=== PATIENT | female | born 1965 | race Caucasian/White ===

== ENCOUNTER 2016-06-18 21:17 | Emergency (ER) | payer OTHER ==
[~2016-06-18 21:17] MED LIST: CYCL5TAB PO; HYDR-971 PO
[2016-06-18 21:18] VITALS: BP 136/82
--- NOTE | 2016-06-18 21:50 | PHYS DOC ---
Past Medical History Past Medical History: No Pertinent History Past Surgical History: Appendectomy, Tonsillectomy Additional Past Surgical Histo: uterine ablation Alcohol Use: Rarely Drug Use: None Adult General Chief Complaint Chief Complaint: HEADACHE HPI HPI Patient is a 50 year old female presents emergency room with complaint of headache and stiff neck began approximately 1500 today. She denies any injury to her neck. 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 She has had multiple contacts with persons with influenza. She is not taking care of any patients with meningitis or encephalitis. She denies antibiotic use, hospitalization or foreign travel past 90 days. Patient states that she took acetaminophen and ibuprofen approximately 1600. Review of Systems Review of Systems Constitutional: Denies fever or chills [] Eyes: Denies change in visual acuity, redness, or eye pain [] HENT: Denies nasal congestion or sore throat [] Respiratory: Denies cough or shortness of breath [] Cardiovascular: No additional information not addressed in HPI [] GI: Denies abdominal pain, nausea, vomiting, bloody stools or diarrhea [] : Denies dysuria or hematuria [] Musculoskeletal: Denies back pain or joint pain [] Integument: Denies rash or skin lesions [] Neurologic: Denies headache, focal weakness or sensory changes [] Endocrine: Denies polyuria or polydipsia [] Allergies Allergies Allergies Coded Allergies Type Severity Reaction Last Updated Verified No Known Drug Allergies 05/12/14 No Physical Exam Physical Exam Constitutional: Well developed, well nourished, mild distress, non-toxic appearance. Patient's temperature is 100. HENT: Normocephalic, atraumatic, bilateral external ears normal, oropharynx moist, no oral exudates, nose normal. Eyes: PERRLA, EOMI, conjunctiva normal, no discharge. [] Neck: Normal range of motion, no tenderness, supple, no stridor. Negative Brudzinski's. There is bilateral anterior and posterior cervical lymphadenopathy. Cardiovascular:Heart rate regular rhythm, no murmur [] Lungs & Thorax: There is no respiratory distress respiratory fatigue. There is no posturing or sensory muscle use. Lungs are clear to auscultation bilaterally. Abdomen: Bowel sounds normal, soft, no tenderness, no masses, no pulsatile masses. [] Skin: Warm, dry, no erythema, no rash. [] Back: No tenderness, no CVA tenderness. [] Extremities: No tenderness, no cyanosis, no clubbing, ROM intact, no edema. [] Neurologic: Alert and oriented X 3, normal motor function, normal sensory function, no focal deficits noted. Psychologic: Affect normal, judgement normal, mood normal. [] Current Patient Data Vital Signs Vital Signs Date Time Temp Pulse Resp B/P Pulse Ox O2 Delivery O2 Flow Rate FiO2 06/18/16 21:18 100.0 82 18 100 Room Air 100.0 Lab Values Laboratory Tests Test 06/18/16 21:45 Urine Collection Type Unknown Urine Color Yellow Urine Clarity Clear Urine pH 6.5 Urine Specific [place] 1.010 Urine Protein Negativemg/dL (NEG-TRACE) Urine Glucose (UA) Negativemg/dL (NEG) Urine Ketones (Stick) Negativemg/dL (NEG) Urine Blood Small (NEG) Urine Nitrite Negative (NEG) Urine Bilirubin Negative (NEG) Urine Urobilinogen Dipstick 0.2mg/dL (0.2 mg/dL) Urine Leukocyte Esterase Negative (NEG) Urine RBC Occ/HPF (0-2) Urine WBC 1-4/HPF (0-4) Urine Squamous Epithelial Cells Few/LPF Urine Bacteria 0/HPF (0-FEW) Influenza Type A Antigen Negative (NEGATIVE) Influenza Type B Antigen Negative (NEGATIVE) EKG EKG [] Radiology/Procedures Radiology/Procedures [] Course & Med Decision Making Course & Med Decision Making Pertinent Labs and Imaging studies reviewed. (See chart for details) [] Dragon Disclaimer Dragon Disclaimer This electronic medical record was generated, in whole or in part, using a voice recognition dictation system. Departure Departure Impression: Primary Impression: Viral syndrome Additional Impression: Myalgia Disposition: 01 HOME, SELF-CARE Condition: GOOD Referrals: LINDY RANGEL (PCP) Patient Instructions: Myalgia, Adult, Viral Syndrome Additional Instructions: 1. Flu test is negative. UA does not show any evidence of infection. 2. Review the discharge instructions provided for self-care and reasons to return the emergency department. 3. Rest at home for the next 2 days. 4. Follow-up with primary care doctor within 2-3 days for reexamination. Scripts Orphenadrine Citrate 100 Mg Tablet.er100 Mg PO BID muscle relaxer #14 Prov:YARON CHIANG 06/18/16 Hydrocodone/Apap 5-325 ([place] 5-325 Tablet)1 Each Tablet1 Tab PO PRN Q6HRS PRN PAIN #10 TAB Prov:YARON CHIANG 06/18/16 Problem Qualifiers YARON CHIANG Jun 18, 2016 21:50
[2016-06-18 22:07] LABS: BILIRUBIN,URINE NEGATIVE (NEG); GLUCOSE,URINE NEGATIVE (NEG); NITRITE,URINE NEGATIVE (NEG); PH,URINE 6.5; PROTEIN,URINE NEGATIVE (NEG-TRACE); UROBILINOGEN,URINE 0.2 mg/dL (0.2 mg/dL)
[2016-06-18 22:19] LABS: OBC FLU VALID
[2016-06-18 22:23] LABS: BACTERIA,URINE 0 /HPF (0-FEW); RBC,URINE OCC /HPF (0-2); SQUAMOUS EPITHELIAL CELL,UR FEW /LPF
[2016-06-18] MEDS ORDERED: HYDR-971 PO (22:31)
[2016-06-18] MEDS ORDERED: ORPH100T PO (22:31)
== END 2016-06-18 22:35 | disposition home or self-care (01) ==
LOC: ER 21:17
DX: B34.9 Viral infection, unspecified (principal); M79.1 Myalgia; R51 Headache; M43.6 Torticollis; R59.1 Generalized enlarged lymph nodes; Z90.89 Acquired absence of other organs
CPT/HCPCS: 81001; 87804; 99284

== ENCOUNTER → 2016-12-06 | Outpatient (CLI) | payer OTHER ==
[~2016-12-06] MED LIST changes: +IOHEXOL 350 MG/ML 100 ML VIAL. ONE; +ORPH100T PO
--- NOTE | 2016-12-06 13:13 | RAD ---
DATE: 12/06/2016 EXAM: DIGITAL SCREEN BILAT W/CAD HISTORY: Routine screening, breast implants COMPARISON: 07/24/2006 This study was interpreted with the benefit of Computerized Aided Detection (CAD). The breast parenchyma is heterogeneously dense, which could reduce sensitivity of mammography. Breast parenchyma level C. FINDINGS: Routine and implant exclusion views of both breasts were obtained. Bilateral breast implants are in place. The fibroglandular tissues are heterogeneously dense. No new or enlarging breast densities are seen. Several scattered benign type calcifications are noted. No suspicious microcalcifications have developed. IMPRESSION: There is no mammographic evidence of malignancy in either breast. BI-RADS CATEGORY: 2 BENIGN FINDING(S) RECOMMENDED FOLLOW-UP: 12M 12 MONTH FOLLOW-UP PQRS compliance statement: Patient information was entered into a reminder system with a target due date for the next mammogram. Mammography is a sensitive method for finding small breast cancers, but it does not detect them all and is not a substitute for careful clinical examination. A negative mammogram does not negate a clinically suspicious finding and should not result in delay in biopsying a clinically suspicious abnormality. "Our facility is accredited by the [employer] Mammography Program."
== END | disposition home or self-care (01) ==
LOC: MAMMO 12:42
PROVIDERS: ATTEND Internal Medicine
DX: Z12.31 Encounter for screening mammogram for malignant neoplasm of breast (principal)
CPT/HCPCS: G0202; 77067

== ENCOUNTER 2018-01-31 08:15 | Emergency (ER) | payer OTHER ==
[~2018-01-31] VITALS: Ht 162.6 cm; Wt 52.2 kg
[~2018-01-31 08:15] MED LIST changes: -IOHEXOL 350 MG/ML 100 ML VIAL. ONE
[2018-01-31 08:27] VITALS: BP 174/80
[2018-01-31] MEDS: KETOROLAC 60 MG/2 ML INJ. IM ONE (08:30)
[2018-01-31] MEDS ORDERED: ONDANSETRON ODT 4 MG TAB.RAPDIS. ONE (08:31)
[2018-01-31] MEDS: ONDANSETRON ODT 4 MG TAB.RAPDIS. PO ONE (08:36)
[2018-01-31] MEDS: methylPREDNISolone SOD SUCC PF 125 MG/2 ML VIAL. IM ONE (08:37)
--- NOTE | 2018-01-31 08:57 | RAD ---
Indication: Low back pain for one day of her climbing ladder. Pain radiating down left leg. TECHNIQUE: Multiple views of the lumbar spine COMPARISON: None FINDINGS: There are 5 lumbar type vertebral bodies. Lumbar spine demonstrates straightening. This could be due to muscle spasm or positioning. No compression deformities. No intervertebral disc space narrowing or productive changes. No significant facet arthropathy. SI joints within normal limits. IMPRESSION: No radiographic evidence of degenerative disc disease. Electronically signed by: Klaus Berkowitz DO (01/31/2018 8:54 AM) [id number]
[2018-01-31] MEDS ORDERED: CYCL10TA2 PO (09:11)
[2018-01-31] MEDS ORDERED: PRED20TA PO (09:11)
--- NOTE | 2018-01-31 09:11 | PHYS DOC ---
Past Medical History Past Medical History: No Pertinent History Past Surgical History: Appendectomy, Tonsillectomy Additional Past Surgical Histo: uterine ablation Alcohol Use: Rarely Drug Use: None Adult General Chief Complaint Chief Complaint: LOWER BACK PAIN OR INJURY [facility] HPI Patient is a 52 year old female presented to ER today for evaluation of low back pain that radiated to her legs and her buttock area. Patient complaint of pain GETTING worse when she sat on her buttock. Patient said said symptoms started last night, she had been climbing up and down the ladder to cleaning her gutters yesterday. She denies any injury. Patient denies any abdominal pain , no nausea vomiting. Patient denies any bowel or bladder incontinence. Review of Systems Review of Systems Constitutional: Denies fever or chills [] Eyes: Denies change in visual acuity, redness, or eye pain [] HENT: Denies nasal congestion or sore throat [] Respiratory: Denies cough or shortness of breath [] Cardiovascular: No additional information not addressed in HPI [] GI: Denies abdominal pain, nausea, vomiting, bloody stools or diarrhea [] : Denies dysuria or hematuria [] Musculoskeletal: POSITIVE FOR LOWER BACK PAIN THAT RADIATING TO BUTTOCK Integument: Denies rash or skin lesions [] Neurologic: Denies headache, focal weakness or sensory changes [] Endocrine: Denies polyuria or polydipsia [] All other systems were reviewed and found to be within normal limits, except as documented in this note. Current Medications Current Medications Current Medications Medications (Trade) Dose Ordered Sig/[facility] Start Time Stop Time Status Last Admin Dose Admin Ketorolac Tromethamine (Toradol Im) 60 mg 1X ONCE 01/31/18 08:30 01/31/18 08:33 DC 01/31/18 08:30 60 MG Methylprednisolone Sodium Succinate (SOLU-Medrol 125MG VIAL) 125 mg 1X ONCE 01/31/18 08:30 01/31/18 08:31 DC 01/31/18 08:37 125 MG Ondansetron HCl (Zofran Odt) 4 mg STK-MED ONCE 01/31/18 08:31 01/31/18 08:32 DC Allergies Allergies Allergies Coded Allergies Type Severity Reaction Last Updated Verified No Known Drug Allergies 05/12/14 No Physical Exam Physical Exam Constitutional: Well developed, well nourished, no acute distress, non-toxic appearance. [] HENT: Normocephalic, atraumatic, Eyes: PERRLA, EOMI, conjunctiva normal, no discharge. [] Neck: Normal range of motion, Cardiovascular: NOT DONE Lungs & Thorax: NOT DONE Abdomen: Bowel sounds normal, soft, no tenderness, no masses, no pulsatile masses. [] Skin: Warm, dry, no erythema, no rash. [] Back: No tenderness, no CVA tenderness. [] Extremities: No tenderness, no cyanosis, no clubbing, ROM intact, no edema. [] Neurologic: Alert and oriented X 3, normal motor function, normal sensory function, no focal deficits noted. [] Psychologic: Affect normal, judgement normal, mood normal. [] Current Patient Data Vital Signs Vital Signs Date Time Temp Pulse Resp B/P (MAP) Pulse Ox O2 Delivery O2 Flow Rate FiO2 01/31/18 08:27 98.2 90 18 174/80 (111) 99 Room Air 98.2 EKG EKG [] Radiology/Procedures Radiology/Procedures [][facility] [address] [place] [address] IMAGING REPORT Signed PATIENT: THAIS KELLY ACCOUNT: [id number] : 1965 LOCATION: ER AGE: 52 SEX: F EXAM STATUS: REG ER ORD. PHYSICIAN: BLANCA HERRON DO REASON: LOWER BACK PAIN SINCE YESTERDAY AFTER CLIMBING UP AND DOWN THE LADDER PROCEDURE: LUMBAR SPINE MIN 4V Indication: Low back pain for one day of her climbing ladder. Pain radiating down left leg. TECHNIQUE: Multiple views of the lumbar spine COMPARISON: None FINDINGS: There are 5 lumbar type vertebral bodies. Lumbar spine demonstrates straightening. This could be due to muscle spasm or positioning. No compression deformities. No intervertebral disc space narrowing or productive changes. No significant facet arthropathy. SI joints within normal limits. IMPRESSION: No radiographic evidence of degenerative disc disease. Electronically signed by: Klaus Berkowitz DO (01/31/2018 8:54 AM) [id number] DICTATED and SIGNED BY: KLAUS BERKOWITZ DO DATE: 01/31/18 0852 Course & Med Decision Making Course & Med Decision Making Pertinent Labs and Imaging studies reviewed. (See chart for details) [] Dragon Disclaimer Dragon Disclaimer This electronic medical record was generated, in whole or in part, using a voice recognition dictation system. Departure Departure Impression: Primary Impression: Acute sciatica Disposition: HOME, SELF-CARE Condition: STABLE Referrals: LINDY RANGEL DO (PCP) Patient Instructions: Sciatica with Rehab-[facility] Scripts Cyclobenzaprine Hcl (CYCLOBENZAPRINE HCL) 10 Mg Tablet 1 MG PO TID PRN for MUSCLE SPASMS for 7 Days, #20 TAB Prov: BLANCA HERRON DO 01/31/18 Prednisone (PREDNISONE) 20 Mg Tablet 1 TAB PO DAILY for 10 Days, #10 TAB Prov: BLANCA HERRON DO 01/31/18 BLANCA HERRON DO Jan 31, 2018 09:11
== END 2018-01-31 09:17 | disposition home or self-care (01) ==
LOC: ER 08:15
DX: M54.42 Lumbago with sciatica, left side (principal); M54.41 Lumbago with sciatica, right side; Z90.89 Acquired absence of other organs
CPT/HCPCS: 72110; 96372; 99284; J1885; J2930; Q0162

== ENCOUNTER → 2018-03-10 | Outpatient (CLI) | payer OTHER ==
[~2018-03-10] MED LIST changes: +CYCL10TA2 PO; +HYDR-3164 PO; -HYDR-971 PO; +PRED20TA PO
--- NOTE | 2018-03-10 09:10 | RAD ---
DATE: 03/10/2018 EXAM: MAMMO ADAM SCREENING BILATERAL HISTORY: Screening mammograms, breast implants COMPARISON: 12/06/2016 This study was interpreted with the benefit of Computerized Aided Detection (CAD). Breast Density: HETERO The breast parenchyma is heterogenously dense, which could reduce sensitivity of mammography. Breast parenchyma level C. FINDINGS: 2-D routine and implant exclusion views of both breasts were obtained in CC and MLO projections. 3-D tomosynthesis imaging of both breasts was also performed in CC and MLO projections. The breast implants appear unchanged. The fibroglandular tissues are heterogeneous in a slightly nodular pattern. No new or enlarging breast densities are seen. Several benign type calcifications are noted. No suspicious microcalcifications have developed. IMPRESSION: Stable mammograms without evidence of malignancy. BI-RADS CATEGORY: 2 BENIGN FINDING(S) RECOMMENDED FOLLOW-UP: 12M 12 MONTH FOLLOW-UP PQRS compliance statement: Patient information was entered into a reminder system with a target due date for the next mammogram. Mammography is a sensitive method for finding small breast cancers, but it does not detect them all and is not a substitute for careful clinical examination. A negative mammogram does not negate a clinically suspicious finding and should not result in delay in biopsying a clinically suspicious abnormality. "Our facility is accredited by the [employer] Mammography Program."
== END | disposition home or self-care (01) ==
LOC: MAMMO 08:19
PROVIDERS: ATTEND Family Medicine
DX: Z12.31 Encounter for screening mammogram for malignant neoplasm of breast (principal)
CPT/HCPCS: 77063; 77067

== ENCOUNTER 2018-07-12 14:16 | Emergency (ER) | payer OTHER ==
[~2018-07-12] VITALS: Ht 162.6 cm; Wt 52.2 kg
[2018-07-12] MEDS ORDERED: IV NORMAL SALINE 1000ML BAG 1,000 ML IV ONE (14:30)
[2018-07-12] MEDS ORDERED: DEXAMETHASONE SOD PHOS 20 MG/5 ML VIAL. IV ONE (14:30)
[2018-07-12] MEDS ORDERED: METOCLOPRAMIDE HCL 10 MG/2 ML VIAL. IV ONE (14:30)
[2018-07-12 14:39] LABS: BASO # 0.1 x10^3/uL (0.0-0.2); BASO % 1 % (0-3); EOS # 0.3 x10^3/uL (0.0-0.7); EOS % 3 % (0-3); HEMATOCRIT 42.2 % (36.0-47.0); HEMOGLOBIN 14.3 g/dL (12.0-15.5); LYMPH # 2.1 x10^3/uL (1.0-4.8); LYMPH % 20 % (24-48); MEAN CORPUSCULAR HEMOGLOBIN 30 pg (25-35); MEAN CORPUSCULAR HGB CONC 34 g/dL (31-37); MEAN CORPUSCULAR VOLUME 88 fL (79-100); MONO # 0.7 x10^3/uL (0.0-1.1); MONO % 7 % (0-9); NEUT # 7.3 x10^3uL (1.8-7.7); NEUT % 69 % (31-73); PLATELET COUNT 415 x10^3/uL (140-400); RED BLOOD COUNT 4.81 x10^6/uL (3.50-5.40); RED CELL DISTRIBUTION WIDTH 13.2 % (11.5-14.5); WHITE BLOOD COUNT 10.6 x10^3/uL (4.0-11.0)
[2018-07-12 14:44] LABS: BILIRUBIN,URINE NEGATIVE (NEG); CLARITY,URINE CLEAR; COLOR,URINE YELLOW; NITRITE,URINE NEGATIVE (NEG); PROTEIN,URINE NEGATIVE (NEG-TRACE); UROBILINOGEN,URINE 0.2 mg/dL (0.2 mg/dL)
[2018-07-12] MEDS ORDERED: DEXAMETHASONE SOD PHOS 4 MG/ML VIAL IV ONE (14:45)
[2018-07-12 14:55] LABS: CREATININE 0.9 mg/dL (0.6-1.0); GFR 66.3; POTASSIUM 3.7 mmol/L (3.5-5.1)
[2018-07-12 14:59] LABS: BACTERIA,URINE FEW /HPF (0-FEW); SQUAMOUS EPITHELIAL CELL,UR MANY /LPF; WBC,URINE OCC /HPF (0-4)
[2018-07-12 15:01] LABS: ALBUMIN 3.9 g/dL (3.4-5.0); ALBUMIN/GLOBULIN RATIO 1.2 (1.0-1.7); TOTAL BILIRUBIN 0.3 mg/dL (0.2-1.0); TOTAL PROTEIN 7.1 g/dL (6.4-8.2)
--- NOTE | 2018-07-12 15:12 | PHYS DOC ---
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 She reports she took Tylenol, ibuprofen, and a sinus medication and since medication has had vision improvement in right side denying any deficits at this time. Patient denies any fever, eye pain, or nausea and vomiting. She reports history of headaches but does not get frequent ones. Patient denies any recent falls or injury. Patient is daily smoker. She reports occasional alcohol denying any intake last night. Currently on her menstrual cycle. Review of Systems Review of Systems Constitutional: Denies fever or chills [] Eyes: Denies redness, or eye pain. Reports had rt side peripheral deficits HENT: Denies nasal congestion or sore throat [] Respiratory: Denies cough or shortness of breath [] Cardiovascular: Denies CP/palpitations GI: Denies abdominal pain, nausea, vomiting, bloody stools or diarrhea [] : Denies dysuria or hematuria [] Musculoskeletal: Denies back pain or joint pain. Integument: Denies rash or skin lesions [] Neurologic: Denies focal weakness or sensory changes. Denies dizziness. Reports frontal headache Endocrine: Denies polyuria or polydipsia [] All other systems were reviewed and found to be within normal limits, except as documented in this note. Current Medications Current Medications Current Medications Medications (Trade) Dose Ordered Sig/An Start Time Stop Time Status Last Admin Dose Admin Dexamethasone Sodium Phosphate (Decadron) 10 mg 1X ONCE 07/12/18 14:45 07/12/18 14:46 DC 07/12/18 15:01 10 MG Metoclopramide HCl (Reglan Vial) 10 mg 1X ONCE 07/12/18 14:30 07/12/18 14:33 DC 07/12/18 14:43 10 MG Sodium Chloride 1,000 ml @ 1,000 mls/hr 1X ONCE 07/12/18 14:30 07/12/18 15:29 DC 07/12/18 14:42 1,000 MLS/HR Allergies Allergies Allergies Coded Allergies Type Severity Reaction Last Updated Verified No Known Drug Allergies 2/25/15 No Physical Exam Physical Exam Constitutional: Well developed, well nourished, no acute distress, non-toxic appearance. Clear speech HENT: Normocephalic, atraumatic, bilateral ears normal, oropharynx moist- no pharyngeal swelling/erythema, no oral exudates, nose normal. [] Eyes: 3mm PERRLA, EOMI- no pain with eye movements, no nystagmus, conjunctiva normal, no discharge. Denying any vision changes or peripheral vision deficits Neck: Normal range of motion, no tenderness/nuchal rigidity, supple, no stridor/gross adenopathy Cardiovascular: Heart rate regular rhythm, no murmur [] Lungs & Thorax: Bilateral breath sounds clear to auscultation- resp. equal/nonlabored Abdomen: Bowel sounds normal, soft, no tenderness Skin: Warm, dry, no erythema, no rash. [] Back: No tenderness, no CVA tenderness. [] Extremities: No tenderness, no cyanosis, no clubbing, ROM intact, no edema. [] Neurologic: Alert and oriented X 3, normal motor function, normal sensory function, no focal deficits noted. Vice President Process equal- no facial droop. NIHSS 0 Psychologic: Affect normal, judgement normal, mood normal. [] Current Patient Data Vital Signs Vital Signs Date Time Temp Pulse Resp B/P (MAP) Pulse Ox O2 Delivery O2 Flow Rate FiO2 07/12/18 15:55 88 16 99 07/12/18 14:16 98.3 126/65 (85) Room Air 98.3 Lab Values Laboratory Tests Test 07/12/18 14:30 07/12/18 14:33 White Blood Count 10.6 x10^3/uL (4.0-11.0) Red Blood Count 4.81 x10^6/uL (3.50-5.40) Hemoglobin 14.3 g/dL (12.0-15.5) Hematocrit 42.2 % (36.0-47.0) Mean Corpuscular Volume 88 fL (79-100) Mean Corpuscular Hemoglobin 30 pg (25-35) Mean Corpuscular Hemoglobin Concent 34 g/dL (31-37) Red Cell Distribution Width 13.2 % (11.5-14.5) Platelet Count 415 x10^3/uL (140-400) H Neutrophils (%) (Auto) 69 % (31-73) Lymphocytes (%) (Auto) 20 % (24-48) L Monocytes (%) (Auto) 7 % (0-9) Eosinophils (%) (Auto) 3 % (0-3) Basophils (%) (Auto) 1 % (0-3) Neutrophils # (Auto) 7.3 x10^3uL (1.8-7.7) Lymphocytes # (Auto) 2.1 x10^3/uL (1.0-4.8) Monocytes # (Auto) 0.7 x10^3/uL (0.0-1.1) Eosinophils # (Auto) 0.3 x10^3/uL (0.0-0.7) Basophils # (Auto) 0.1 x10^3/uL (0.0-0.2) Sodium Level 137 mmol/L (136-145) Potassium Level 3.7 mmol/L (3.5-5.1) Chloride Level 100 mmol/L (98-107) Carbon Dioxide Level 27 mmol/L (21-32) Anion Gap 10 (6-14) Blood Urea Nitrogen 12 mg/dL (7-20) Creatinine 0.9 mg/dL (0.6-1.0) Estimated GFR (Cockcroft-Gault) 66.3 BUN/Creatinine Ratio 13 (6-20) Glucose Level 169 mg/dL (70-99) H Calcium Level 9.0 mg/dL (8.5-10.1) Total Bilirubin 0.3 mg/dL (0.2-1.0) Aspartate Amino Transferase (AST) 17 U/L (15-37) Alanine Aminotransferase (ALT) 20 U/L (14-59) Alkaline Phosphatase 58 U/L (46-116) Total Protein 7.1 g/dL (6.4-8.2) Albumin 3.9 g/dL (3.4-5.0) Albumin/Globulin Ratio 1.2 (1.0-1.7) Urine Collection Type Unknown Urine Color Yellow Urine Clarity Clear Urine pH 6.0 Urine Specific [place] 1.015 Urine Protein Negative mg/dL (NEG-TRACE) Urine Glucose (UA) Negative mg/dL (NEG) Urine Ketones (Stick) Negative mg/dL (NEG) Urine Blood Moderate (NEG) Urine Nitrite Negative (NEG) Urine Bilirubin Negative (NEG) Urine Urobilinogen Dipstick 0.2 mg/dL (0.2 mg/dL) Urine Leukocyte Esterase Negative (NEG) Urine RBC 6-10 /HPF (0-2) Urine WBC Occ /HPF (0-4) Urine Squamous Epithelial Cells Many /LPF Urine Bacteria Few /HPF (0-FEW) Urine Mucus Marked /LPF Laboratory Tests 07/12/18 14:30 Laboratory Tests 07/12/18 14:30 EKG EKG [] Radiology/Procedures Radiology/Procedures PROCEDURE: CT HEAD WO CONTRAST CT brain without contrast. HISTORY: Severe headache, right side vision change CT scan of brain was done without contrast. There is no intracranial hemorrhage or subdural hematoma. Ventricles are normal in size. There is no mass or shift of the midline. There are no abnormal areas of increased or decreased attenuation. Sinuses are clear. IMPRESSION: 1. No intracranial hemorrhage or acute finding noted. Electronically signed by: Jamarcus Nowak MD (07/12/2018 4:01 PM) [id number] DICTATED and SIGNED BY: JAMARCUS NOWAK MD DATE: 07/12/18 1601 Course & Med Decision Making Course & Med Decision Making Pertinent Labs and Imaging studies reviewed. 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 Patient had labs and CT obtained. Patient had medications provided for headache. Labs were unremarkable and CT with no acute findings. Patient reported after treatments received her headache significantly improved and she is feeling comfortable with home discharge. Patient reports she feels the IV fluids probably is what she needed as she may have been dehydrated. Patient has had no focal neuro deficits. Patient states her vision changes subsided and she is having no dizziness, eye pain, or vision changes. Patient has steady gait at bedside unassisted. Vital signs have been stable. Patient is requesting discharge as her symptoms have improved. Patient states she will follow-up with her primary care physician if symptoms reoccur or with concerns. Smoking cessation was discussed. Patient encouraged to increase fluid intake and eat well-balanced meals. Education provided on signs and symptoms to return to ER for and discharge instructions were discussed. Dragon Disclaimer Dragon Disclaimer This electronic medical record was generated, in whole or in part, using a voice recognition dictation system. Departure Departure Impression: Primary Impression: Headache Disposition: 01 HOME, SELF-CARE Condition: STABLE Referrals: ELLA HART MD (PCP) Patient Instructions: General Headache Without Cause Additional Instructions: Tylenol and/or Ibuprofen as needed for pain. Drink plenty of fluids. Avoid smoking. If symptoms persist follow-up with your primary care physician for reevaluation. Scripts Ondansetron (ONDANSETRON ODT) 4 Mg Tab.rapdis 1 TAB PO PRN Q6-8HRS PRN for NAUSEA, #10 TAB 0 Refills Prov: SHIRLEY TAY APRN 07/12/18 SHIRLEY TAY APRN Jul 12, 2018 15:11
[2018-07-12 15:55] VITALS: BP 155/66
--- NOTE | 2018-07-12 16:03 | RAD ---
CT brain without contrast. HISTORY: Severe headache, right side vision change CT scan of brain was done without contrast. There is no intracranial hemorrhage or subdural hematoma. Ventricles are normal in size. There is no mass or shift of the midline. There are no abnormal areas of increased or decreased attenuation. Sinuses are clear. IMPRESSION: 1. No intracranial hemorrhage or acute finding noted. Electronically signed by: Jamarcus Kaur MD (07/12/2018 4:01 PM) [id number]
[2018-07-12] MEDS ORDERED: ONDA4TAB12 PO (16:21)
== END 2018-07-12 16:20 | disposition home or self-care (01) ==
LOC: ER 14:16
DX: R51 Headache (principal); H54.7 Unspecified visual loss; F17.200 Nicotine dependence, unspecified, uncomplicated
CPT/HCPCS: 36415; 70450; 80053; 81001; 85025; 96374; 96375; 99285; J1100; J2765; J7030

== ENCOUNTER → 2018-10-22 | Outpatient (CLI) | payer OTHER ==
[~2018-10-22] MED LIST changes: +ONDA4TAB12 PO
[2018-10-22 13:31] LABS: HEMATOCRIT 43.5 % (36.0-47.0); HEMOGLOBIN 14.8 g/dL (12.0-15.5); RED BLOOD COUNT 4.93 x10^6/uL (3.50-5.40); RED CELL DISTRIBUTION WIDTH 12.8 % (11.5-14.5); WHITE BLOOD COUNT 11.4 x10^3/uL (4.0-11.0)
[2018-10-22 13:46] LABS: CALCIUM 9.1 mg/dL (8.5-10.1); CREATININE 0.7 mg/dL (0.6-1.0); GFR 88.2; POTASSIUM 3.5 mmol/L (3.5-5.1)
[2018-10-22 13:47] LABS: CHOLESTEROL/HDL RATIO 3.4
[2018-10-24 22:08] LABS: THYROXINE 7.4 ug/dL (4.5-12.0)
== END | disposition home or self-care (01) ==
LOC: LAB 11:21
PROVIDERS: ATTEND Family Medicine
DX: Z00.00 Encounter for general adult medical examination without abnormal findings (principal)
CPT/HCPCS: 36415; 80048; 80061; 84436; 84443; 84480; 85027

== ENCOUNTER → 2018-12-10 | Outpatient (CLI) | payer OTHER ==
--- NOTE | 2018-12-10 14:44 | RAD ---
EXAM: Renal sonogram. HISTORY: Hematuria. TECHNIQUE: Sonographic imaging of the kidneys and bladder was performed. COMPARISON: None. FINDINGS: The right kidney measures 10.4 cm [id number]. The left kidney measures 10.2 cm [id number]. There is a 2.1 cm complex right renal parapelvic cyst. There is no hydronephrosis. The ureteral jets are both seen. There is a 1.7 cm hypoechoic lesion along the left posterior bladder wall, possibly due to an adjacent subserosal uterine fibroid. The aorta is normal in caliber. The inferior vena cava is patent. IMPRESSION: 1. 2.1 cm complicated right renal cyst, not appreciably changed compared to the remote CT dated 07/28/2011 when allowing for differences in imaging modality. 2. 1.7 cm nodular lesion along the left posterior bladder wall, possibly a subserosal fibroid associated with the uterine fundus. There is suggestion of this lesion on the prior CT. The imaging appearance does not favor a bladder neoplasm. Electronically signed by: Destiny Oslulivan MD (12/10/2018 2:41 PM) [place] [id number]
== END | disposition home or self-care (01) ==
LOC: US 09:42
PROVIDERS: ATTEND Urology
DX: N28.1 Cyst of kidney, acquired (principal); N32.89 Other specified disorders of bladder
CPT/HCPCS: 76770

== ENCOUNTER → 2019-10-13 | Outpatient (CLI) | payer OTHER ==
[2019-10-13 08:57] LABS: ALBUMIN/GLOBULIN RATIO 1.2 (1.0-1.7); CALCIUM 8.8 mg/dL (8.5-10.1); CHOLESTEROL/HDL RATIO 3.7; GFR 58.2; POTASSIUM 3.6 mmol/L (3.5-5.1); TOTAL BILIRUBIN 0.5 mg/dL (0.2-1.0); TOTAL PROTEIN 7.3 g/dL (6.4-8.2)
--- NOTE | 2019-10-13 15:31 | RAD ---
DATE: 10/13/2019 8:25 AM EXAM: MAMMO ADAM SCREENING BILATERAL HISTORY: Screening COMPARISON: 03/10/2018 Bilateral CC and MLO views of the breasts in addition to implant displaced CC and MLO views were performed. Bilateral breast tomosynthesis was performed in CC and MLO projections. This study was interpreted with the benefit of Computerized Aided Detection (CAD). FINDINGS: Breast Density: HETERO The breast parenchyma Is heterogeneously dense, which could reduce sensitivity of mammography. Breast parenchyma level C Nodular parenchymal pattern compatible with benign cystic change. Bilateral subpectoral saline implants are present. No suspicious masses, microcalcifications or architectural distortion is present to suggest malignancy in either breast. The visualized axillae are unremarkable. IMPRESSION: No mammographic evidence of malignancy. BI-RADS CATEGORY: 2 BENIGN FINDING(S) RECOMMENDED FOLLOW-UP: 12M 12 MONTH FOLLOW-UP Annual screening mammography is recommended, unless clinically indicated sooner based on symptoms or change in physical exam. PQRS compliance statement: Patient information was entered into a reminder system with a target due date 10/13/2020 for the next mammogram. Mammography is a sensitive method for finding small breast cancers, but it does not detect them all and is not a substitute for careful clinical examination. A negative mammogram does not negate a clinically suspicious finding and should not result in delay in biopsying a clinically suspicious abnormality. "Our facility is accredited by the [employer] Mammography [employer]."
== END | disposition home or self-care (01) ==
LOC: MAMMO 08:04
PROVIDERS: ATTEND Family Medicine
DX: Z12.31 Encounter for screening mammogram for malignant neoplasm of breast (principal); E78.5 Hyperlipidemia, unspecified
CPT/HCPCS: 36415; 77063; 77067; 80053; 80061

== ENCOUNTER → 2019-12-31 | Outpatient (CLI) | payer OTHER ==
[~2019-12-31] MED LIST changes: +GADOTERATE 7.5 MMOL/15ML VIAL. IVP ONE
--- NOTE | 2019-12-31 13:56 | RAD ---
MRI Brain with and without contrast History:Nonintractable episodic headache Technique: Multiplanar, multi sequential pre and postcontrast MR imaging was performed of the brain. Comparison: None Findings: There is mild motion. There is no evidence of recent infarct or cytotoxic edema. The ventricles, sulci, and cisterns are within normal limits in size and configuration. There is no significant midline shift, intraaxial mass effect, or focal abnormal extra-axial fluid collection. There is a tiny focus of FLAIR hyperintense signal of the left frontal white matter likely focus of nonspecific gliosis. There is no significant hemosiderin deposition the brain parenchyma. There is no nodular parenchymal or leptomeningeal enhancement. There is preservation of the major intracranial flow-voids at the skull base. The cerebellar tonsils are normal in location. There is no significant abnormality of the pineal gland or pituitary gland. There is negligible patchy bilateral air cell mucosal thickening. There is very minimal thickening of left mastoid air cells.There is preserved marrow signal of the clivus. Impression: 1. Other than a tiny focus of likely nonspecific gliosis of the left frontal white matter, there is no significant intracranial abnormality. Electronically signed by: Tk Wyman MD (12/31/2019 1:53 PM) [facility]
== END ==
LOC: MRI 12:27
PROVIDERS: ATTEND Family Medicine
DX: R51.9 Headache, unspecified (principal); J34.89 Other specified disorders of nose and nasal sinuses
CPT/HCPCS: 70553; A9575

== ENCOUNTER → 2019-12-31 | Outpatient (CLI) | payer OTHER ==
[~2019-12-31] MED LIST changes: -GADOTERATE 7.5 MMOL/15ML VIAL. IVP ONE
== END ==
LOC: LAB 14:04
PROVIDERS: ATTEND Internal Medicine Pulmonary Disease
DX: R51.9 Headache, unspecified (principal); Z20.828 Contact with and (suspected) exposure to other viral communicable diseases
CPT/HCPCS: U0003-CS

== ENCOUNTER → 2020-01-06 | Outpatient (CLI) | payer OTHER ==
[~2020-01-06] MED LIST changes: +ATOR10TA PO
== END ==
LOC: LAB 07:44
PROVIDERS: ATTEND Internal Medicine Gastroenterology
DX: Z01.812 Encounter for preprocedural laboratory examination (principal); Z20.828 Contact with and (suspected) exposure to other viral communicable diseases
CPT/HCPCS: U0003-CS

== ENCOUNTER → 2020-01-06 | Outpatient (CLI) | payer OTHER ==
[~2020-01-06] MED LIST changes: -ATOR10TA PO
[2020-01-06 08:24] LABS: CALCIUM 9.4 mg/dL (8.5-10.1); CREATININE 0.9 mg/dL (0.6-1.0); GFR 65.8; HEMATOCRIT 43.7 % (36.0-47.0); HEMOGLOBIN 14.7 g/dL (12.0-15.5); MAGNESIUM 2.2 mg/dL (1.8-2.4); RED BLOOD COUNT 4.97 x10^6/uL (3.50-5.40); RED CELL DISTRIBUTION WIDTH 12.5 % (11.5-14.5); WHITE BLOOD COUNT 7.6 x10^3/uL (4.0-11.0)
[2020-01-06 08:25] LABS: CHOLESTEROL/HDL RATIO 2.5
[2020-01-06 08:35] LABS: FREE T4 0.86 ng/dL (0.76-1.46); THYROID STIM HORMONE (TSH) 0.688 uIU/mL (0.358-3.74)
== END ==
LOC: LAB 07:37
PROVIDERS: ATTEND Family Medicine
DX: E78.5 Hyperlipidemia, unspecified (principal); R51.9 Headache, unspecified
CPT/HCPCS: 36415; 80048; 80061; 83735; 84439; 84443; 85027

== ENCOUNTER → 2020-01-08 | Day surgery (SDC) | payer OTHER ==
[~2020-01-08] MED LIST changes: +ATOR10TA PO; +IV RINGERS,LACTATED 1000ML 1,000 ML IV SCH; +PROPOFOL 10 MG/ML (20ML) VIAL. IV ONE
[2020-01-08 09:10] VITALS: BP 104/54
== END ==
LOC: SURG 06:54
PROVIDERS: ATTEND Internal Medicine Gastroenterology
DX: Z12.11 Encounter for screening for malignant neoplasm of colon (principal); K64.0 First degree hemorrhoids; E78.5 Hyperlipidemia, unspecified; K21.9 Gastro-esophageal reflux disease without esophagitis; E78.00 Pure hypercholesterolemia, unspecified; F41.9 Anxiety disorder, unspecified; F32.9 Major depressive disorder, single episode, unspecified; F17.210 Nicotine dependence, cigarettes, uncomplicated; Z79.899 Other long term (current) drug therapy; Z98.890 Other specified postprocedural states; Z82.49 Family history of ischemic heart disease and other diseases of the circulatory system; Z83.3 Family history of diabetes mellitus
CPT/HCPCS: 45378; 81025; J2704

== ENCOUNTER → 2020-08-23 | Outpatient (CLI) | payer OTHER ==
[2020-01-08 09:10] VITALS: BP 104/54
[~2020-08-23] MED LIST changes: -IV RINGERS,LACTATED 1000ML 1,000 ML IV SCH; -PROPOFOL 10 MG/ML (20ML) VIAL. IV ONE
[2020-08-23 17:00] LABS: BASO # 0.1 x10^3/uL (0.0-0.2); BASO % 1 % (0-3); EOS # 0.2 x10^3/uL (0.0-0.7); EOS % 3 % (0-3); HEMATOCRIT 38.5 % (36.0-47.0); HEMOGLOBIN 13.3 g/dL (12.0-15.5); LYMPH # 2.3 x10^3/uL (1.0-4.8); LYMPH % 32 % (24-48); MEAN CORPUSCULAR HEMOGLOBIN 30 pg (25-35); MEAN CORPUSCULAR HGB CONC 35 g/dL (31-37); MEAN CORPUSCULAR VOLUME 87 fL (79-100); MONO # 0.6 x10^3/uL (0.0-1.1); MONO % 8 % (0-9); NEUT % 57 % (31-73); PLATELET COUNT 348 x10^3/uL (140-400); RED BLOOD COUNT 4.45 x10^6/uL (3.50-5.40); RED CELL DISTRIBUTION WIDTH 12.7 % (11.5-14.5); WHITE BLOOD COUNT 7.1 x10^3/uL (4.0-11.0)
[2020-08-23 17:17] LABS: ALBUMIN 4.2 g/dL (3.4-5.0); ALBUMIN/GLOBULIN RATIO 1.3 (1.0-1.7); CALCIUM 8.8 mg/dL (8.5-10.1); CREATININE 0.8 mg/dL (0.6-1.0); GFR 75.3; POTASSIUM 3.8 mmol/L (3.5-5.1); TOTAL BILIRUBIN 0.3 mg/dL (0.2-1.0); TOTAL PROTEIN 7.5 g/dL (6.4-8.2)
[2020-08-23 17:30] LABS: FREE T4 0.86 ng/dL (0.76-1.46); THYROID STIM HORMONE (TSH) 0.807 uIU/mL (0.358-3.74)
[2020-08-24 01:09] LABS: FSH 39.6 mIU/mL (.); LUTEINIZING HORMONE 29.1 mIU/mL (.)
== END ==
LOC: LAB 16:31
PROVIDERS: ATTEND Family Medicine
DX: E78.5 Hyperlipidemia, unspecified (principal); R53.82 Chronic fatigue, unspecified
CPT/HCPCS: 36415; 80053; 83001; 83002; 84439; 84443; 85025

== ENCOUNTER → 2020-11-29 | Outpatient (CLI) | payer OTHER ==
[2020-01-08 09:10] VITALS: BP 104/54
--- NOTE | 2020-11-29 08:51 | RAD ---
EXAM: Bilateral digital screening mammogram with tomosynthesis. HISTORY: 55-year-old female presents for screening mammography. TECHNIQUE: Full-field digital craniocaudal and mediolateral oblique 2D and 3D tomosynthesis images of both breasts are obtained for evaluation. Computer aided detection was applied. COMPARISON: 10/13/2019 BREAST PARENCHYMAL DENSITY: Level C - Heterogeneously dense. FINDINGS: There is no new suspicious mass, microcalcification or region of architectural distortion. There are multiple circumscribed nodular densities within both breasts, the appearance and multiplici ty of which favors a benign cystic etiology. The largest of these is seen within the 6:00 subareolar aspect of the right breast. There are multiple benign-appearing calcifications. There are unremarkabl e bilateral breast implants. IMPRESSION: BI-RADS Category 2: Benign finding(s). RECOMMENDATION: Annual mammography is recommended. If your mammogram demonstrates that you have dense breast tissue, which could hide abnormalities, and if you have other risk factors for breast cancer that have been identified, you might benefit from s upplemental screening tests that may be suggested by your ordering physician. Dense breast tissue, i n and of itself, is a relatively common condition. This information is not provided to cause undue c oncern, but rather to raise your awareness and to promote discussion with your physician regarding th e presence of other risk factors, in addition to dense breast tissue. A report of your mammography re sults will be sent to you and your physician. You should contact your physician if you have any ques tions or concerns regarding this report. Mammography is a sensitive method for finding small breast cancers, but it does not detect them all a nd is not a substitute for careful clinical examination. A negative mammogram does not negate a clin ically suspicious finding and should not result in delay in biopsying a clinically suspicious abnorma lity. PQRS compliance statement - Patient information was entered into a reminder system with a target due date for the next mammogram. "Our facility is accredited by the [employer] Mammography [employer]." Electronically signed by: Destiny Osullivan MD (11/29/2020 8:48 AM) [id number]
== END ==
LOC: MAMMO 09:20
PROVIDERS: ATTEND Family Medicine
DX: Z12.31 Encounter for screening mammogram for malignant neoplasm of breast (principal)
CPT/HCPCS: 77063; 77067

== ENCOUNTER 2021-08-04 06:53 | Emergency (ER) | payer OTHER ==
[~2021-08-04] VITALS: Ht 162.6 cm; Wt 61.3 kg
[~2021-08-04 06:53] MED LIST changes: +CYCL10TA19 PO; -CYCL10TA2 PO
[2021-08-04 07:07] VITALS: BP 144/54
[2021-08-04] MEDS ORDERED: IOHEXOL 300 MG/ML 100ML VIAL. IV ONE (07:45)
[2021-08-04] MEDS ORDERED: CONTRAST GIVEN. MC PRN (07:45)
--- NOTE | 2021-08-04 07:56 | PHYS DOC ---
Past Medical History Past Medical History: Other Additional Past Medical Histor: headaches 1/year Past Surgical History: Appendectomy, Tonsillectomy Additional Past Surgical Histo: uterine ablation Smoking Status: Former Smoker Alcohol Use: Rarely Drug Use: None General Adult EDM: Chief Complaint: SORE THROAT HPI: HPI: 55-year-old female, otherwise healthy, presents with left lower jaw pain and swelling times few days. Approximately 3 weeks ago, patient had left upper molar root canal, status post amoxicillin. Oral surgeon Dr. Tidwell then referred patient to ENT Dr. 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 Patient unable to f/u with ENT outpatient 04/19 insurance and recommended ED eval for possible higher level of care; [facility]. Patient was placed on Augmentin and status post 1 dose so far. Denies fever, sore throat, nausea, vomiting, chest pain or shortness of breath. Review of Systems: Review of Systems: Constitutional: Denies fever or chills. [] Eyes: Denies change in visual acuity. [] HENT: Denies nasal congestion or sore throat. +L lower jaw pain and swelling Respiratory: Denies cough or shortness of breath. [] Cardiovascular: Denies chest pain or edema. [] GI: Denies abdominal pain, nausea, vomiting, bloody stools or diarrhea. [] : Denies dysuria. [] Musculoskeletal: Denies back pain or joint pain. [] Integument: Denies rash. [] Neurologic: Denies headache, focal weakness or sensory changes. [] Endocrine: Denies polyuria or polydipsia. [] Lymphatic: Denies swollen glands. [] Psychiatric: Denies depression or anxiety. [] Heart Score: C/O Chest Pain: No Risk Factors: Risk Factors: DM, Current or recent (<one month) smoker, HTN, HLP, family history of CAD, obesity. Risk Scores: Score 0 - 3: 2.5% MACE over next 6 weeks - Discharge Home Score 4 - 6: 20.3% MACE over next 6 weeks - Admit for Clinical Observation Score 7 - 10: 72.7% MACE over next 6 weeks - Early Invasive Strategies Current Medications: Current Medications Medications (Trade) Dose Ordered Sig/An Start Time Stop Time Status Last Admin Dose Admin Info (CONTRAST GIVEN -- Rx MONITORING) 1 each PRN DAILY PRN 08/04/21 07:45 08/06/21 07:44 Iohexol (Omnipaque 300 Mg/ml) 75 ml 1X ONCE 08/04/21 07:45 08/04/21 07:46 DC Allergies: Allergies: Allergies Coded Allergies Type Severity Reaction Last Updated Verified No Known Drug Allergies 01/08/20 No Physical Exam: PE: Constitutional: Well developed, well nourished, no acute distress, non-toxic appearance. [] HENT: Normocephalic, atraumatic, bilateral external ears normal, oropharynx moist, no oral exudates, nose normal. []+ mild L lower jaw/cheek swelling and mild ttp of lower jaw, no obvious fluctuance or palpable stone Eyes: PERRLA, EOMI, conjunctiva normal, no discharge. [] Neck: Normal range of motion, no tenderness, supple, no stridor. [] Cardiovascular:Heart rate regular rhythm, no murmur [] Lungs & Thorax: Bilateral breath sounds clear to auscultation [] Abdomen: Bowel sounds normal, soft, no tenderness, no masses, no pulsatile masses. [] Skin: Warm, dry, no erythema, no rash. [] Back: No tenderness, no CVA tenderness. [] Extremities: No tenderness, no cyanosis, no clubbing, ROM intact, no edema. [] Neurologic: Alert and oriented X 3, normal motor function, normal sensory function, no focal deficits noted. [] Psychologic: Affect normal, judgement normal, mood normal. [] Current Patient Data: Vital Signs: Vital Signs Date Time Temp Pulse Resp B/P (MAP) Pulse Ox O2 Delivery O2 Flow Rate FiO2 08/04/21 07:07 97.6 83 17 144/54 (84) 99 Room Air 97.6 EKG: EKG: [] Radiology/Procedures: Radiology/Procedures: [] Course & Med Decision Making: Course & Med Decision Making Pertinent Labs and Imaging studies reviewed. (See chart for details) Additional Social History: PMD from non-affiliated facility. Patient Lives at home. Family History: Non-pertinent to today's complaint. Nursing Notes Reviewed Previous Medical Records requested via [facility] Web: Reviewed by me. EMERGENT LABS AND DIAGNOSTIC STUDIES: Results were reviewed and interpreted by me as below PROCEDURE: CT SOFT TISSUE NECK WO/W CONT Impression: 1. No suspicious mass, adenopathy, abscess or evidence of sialadenitis. EMERGENCY DEPARTMENT COURSE/ MEDICAL DECISION MAKING: The patient was placed on a vehicle monitor technician, continuous pulse oximetry and was given supplemental oxygen. I examined the patient, evaluated and addressed patient's chief complaint. R/O abscess, L submandibular sialadenitis vs stone vs suppurative parotitis CT unremarkable. Vitals wnl. Well appearing. Labs unremarkable. Spoke with patient's ENT Dr. Hicks and concern for early sialoadenitis? plan for covera ge with additional 7 days of augmentin (patient already has a 7 day course which she started; total 14 days ago) with a prednisone burst of 6 days. Patient asking for few norco tabs in case. Dr. Hicks asking that she call him at the end of the abx course for f/u The patient understands that todays Emergency Department evaluation does not represent a comprehensive medical workup, and it is impossible to diagnose all possible illnesses from a single Emergency Department visit. The patient verbalized understanding that it is absolutely necessary to have follow-up with regular primary care physician within 1-2 days for more detailed workup and continued exam. I explained the findings and plan to the patient, who expressed verbal understanding and agreed with plan for discharge and follow up. The patient was given after care instructions and welcomed to return to the ED for re-evaluation in 8-12 hours, especially for any new or worsening symptoms. Patient's blood pressure was elevated (>120/80) but appears stable without evidence of end organ damage, malignant hypertension, hypertensive emergency or urgency. The patient was counseled about the risks of hypertension and urged to pursue outpatient monitoring and therapy within a week with their primary care physician. The patient was stable at the time of discharge. DIAGNOSTIC IMPRESSION: 1. L facial swelling and pain DISPOSITION: Disposition: Discharge Home. Condition: Improved Follow-Up: PMD., ENT Prescriptions: augmentin, prednisone, norco Return to the Emergency Department for new or worsening symptoms. Cheko Disclaimer: Cheko Disclaimer: This electronic medical record was generated, in whole or in part, using a voice recognition dictation system. Departure Departure Impression: Primary Impression: Left facial pain Additional Impression: Left facial swelling Disposition: HOME / SELF CARE / HOMELESS Condition: STABLE Referrals: TINO WILSON MD (PCP) Scripts Hydrocodone/Acetaminophen (Hydrocodone-Acetamin 5-325 mg) 1 Each Tablet 1 EACH PO Q4-6HRS PRN for PAIN, #14 TAB Prov: HI LOWERY MD 08/04/21 Prednisone (PREDNISONE) 20 Mg Tablet 2 TAB PO DAILY PRN for COUGH for 6 Days, #12 TAB Prov: HI LOWERY MD 08/04/21 Amoxicillin/Potassium Clav (AUGMENTIN 875-125 TABLET) 1 Each Tablet 1 TAB PO BID for 7 Days, #14 TAB 0 Refills Prov: HI LOWERY MD 08/04/21 HI LOWERY MD August 04, 2021 07:56
[2021-08-04 08:01] LABS: CREATININE 0.7 mg/dL (0.6-1.0); GFR 87.5; POTASSIUM 4.1 mmol/L (3.5-5.1)
[2021-08-04 08:05] LABS: BASO % 1 % (0-3); EOS # 0.2 x10^3/uL (0.0-0.7); EOS % 3 % (0-3); HEMATOCRIT 40.3 % (36.0-47.0); HEMOGLOBIN 13.6 g/dL (12.0-15.5); LYMPH # 1.3 x10^3/uL (1.0-4.8); LYMPH % 21 % (24-48); MEAN CORPUSCULAR HEMOGLOBIN 29 pg (25-35); MEAN CORPUSCULAR HGB CONC 34 g/dL (31-37); MEAN CORPUSCULAR VOLUME 86 fL (79-100); MONO # 0.6 x10^3/uL (0.0-1.1); MONO % 10 % (0-9); NEUT # 4.1 x10^3/uL (1.8-7.7); NEUT % 65 % (31-73); PLATELET COUNT 392 x10^3/uL (140-400); RED BLOOD COUNT 4.68 x10^6/uL (3.50-5.40); RED CELL DISTRIBUTION WIDTH 13.3 % (11.5-14.5); WHITE BLOOD COUNT 6.3 x10^3/uL (4.0-11.0)
[2021-08-04 08:08] LABS: ALBUMIN 3.5 g/dL (3.4-5.0); ALBUMIN/GLOBULIN RATIO 0.9 (1.0-1.7); TOTAL BILIRUBIN 0.4 mg/dL (0.2-1.0); TOTAL PROTEIN 7.4 g/dL (6.4-8.2)
--- NOTE | 2021-08-04 08:56 | RAD ---
CT NECK SOFT TISSUE WITHOUT AND WITH IV CONTRAST History: Pain. Rule out abscess, sialadenitis, stone. Comparison: None. Technique: CT of the neck without and with intravenous contrast. Findings: Mucosa: No mass in the nasal cavity, nasopharynx, oral cavity, oropharynx, larynx, hypopharynx, or pr oximal trachea/esophagus. Oral cavity is obscured by dental artifact. Glands: Normal bilateral parotid, submandibular, and thyroid glands. Nodes: No pathologically enlarged or necrotic cervical lymph nodes. Vessels: Vascular structures are patent. No carotid space mass. Bones: No acute findings. No significant abnormality in the cervical spine. Other: No suspicious lesion in the lung apices. Minimal apical pleural-parenchymal scarring and jonnathan eptal emphysema. Impression: 1. No suspicious mass, adenopathy, abscess or evidence of sialadenitis. ------ Exposure: One or more of the following individualized dose reduction techniques were utilized for thi s examination: 1. Automated exposure control 2. Adjustment of the mA and/or kV according to patient size 3. Use of iterative reconstruction technique. Electronically signed by: Gurdeep Dorado MD (08/04/2021 8:53 AM) [id number]
[2021-08-04] MEDS ORDERED: AMOX1TAB61 PO (09:29)
[2021-08-04] MEDS ORDERED: PRED20TA PO (09:32)
[2021-08-04] MEDS ORDERED: HYDR-2759 PO (09:34)
== END 2021-08-04 09:44 | disposition home or self-care (01) ==
LOC: ER 06:53
DX: R51.9 Headache, unspecified (principal); R68.84 Jaw pain
CPT/HCPCS: 36415; 70492; 80053; 85025; 99285; Q9967